=== PATIENT | female | born 1990 | race Caucasian/White ===

== ENCOUNTER 2017-02-20 06:49 | Day surgery (SDC) | payer OTHER ==
[~2017-02-20] VITALS: Ht 182.9 cm; Wt 163.0 kg
[~2017-02-20 06:49] MED LIST: CLEOCIN300 MG PO; VICODIN 5-3001 EACH PO; ZESTORETIC 20-1 EAC3 PO
[2017-02-20 07:44] VITALS: BP 171/78
[2017-02-20] MEDS ORDERED: MOTRIN800 MG PO (08:38)
[2017-02-20 08:44] LABS: METH RESISTANT S AUREUS PCR NEGATIVE (NEGATIVE)
[2017-02-20 08:45] LABS: PROBE CHECK PASS; SPECIMEN PROCESSING CONTROL PASS
[2017-02-20 10:50] VITALS: BP 154/92
[2017-02-20 12:00] VITALS: BP 150/90
== END 2017-02-20 12:05 | disposition home or self-care (01) ==
LOC: SDC 06:49
PROVIDERS: Obstetrics & Gynecology
DX: N85.02 Endometrial intraepithelial neoplasia [EIN] (principal); E66.9 Obesity, unspecified; Z68.42 Body mass index [BMI] 45.0-49.9, adult; I10 Essential (primary) hypertension; Z83.3 Family history of diabetes mellitus; Z82.49 Family history of ischemic heart disease and other diseases of the circulatory system
CPT/HCPCS: 87641; 88175; 88305; J0330; J1100; J1885; J2250; J2405; J3010; J7120